=== PATIENT | female | born 1960 | race Caucasian/White ===

== ENCOUNTER 2021-07-21 15:22 | Inpatient (IN) | payer OTHER ==
[~2021-07-21] VITALS: Ht 167.6 cm; Wt 195.0 kg
[2021-07-21 16:49] LABS: INR 1.23 (0.9-1.15); Partial Thromboplastin Time 22.8 sec (23.6-33.0)
[2021-07-21 16:52] LABS: Potassium 4.5 mmol/L (3.5-5.1)
[2021-07-21 16:54] LABS: Lactic Acid w/Reflex 5.5 mmol/L (0.4-2.0)
[2021-07-21 16:58] LABS: Albumin 2.5 g/dL (3.4-5.0); BUN/Creatinine Ratio 42.2; Bilirubin, Total 0.6 mg/dL (0.2-1.0); Calcium 8.5 mg/dL (8.5-10.1); Magnesium 2.3 mg/dL (1.6-2.6); Total Protein 6.7 g/dL (6.4-8.2)
[2021-07-21 18:18] LABS: Hematocrit 22.9 % (36.0-46.0); Hemoglobin 7.3 g/dL (12.2-16.2)
[2021-07-21 18:20] LABS: Mean Corpuscular Hemoglobin 30.6 pg (28.0-32.0); Mean Corpuscular Volume 95.7 fL (80.0-100.0); Red Blood Cells 2.39 10^6/uL (4.0-5.20); Red Cell Distribution Width 13.8 % (11.8-14.3)
[2021-07-21 18:39] LABS: White Blood Cell 34.1 10^3/uL (4.4-10.8)
[2021-07-21 18:41] LABS: Basophils % (manual) 0 (0.0-2.0); Blast Cells 0; Eosinophils % (manual) 0 (0-7); Metamyelocytes % 0; Myelocytes % 0; Promyelocytes % 0; Reactive Lymphocytes 0
[2021-07-21 18:56] LABS: Band Neutrophils % (manual) 10; Lymphocytes % (manual) 5 (10.0-50.0); Monocytes % (manual) 12 (0-12)
[2021-07-21] MEDS ORDERED: cefTRIAXone 1GM/50ML D5W 50 ML IV ONE (19:00)
[2021-07-21] MEDS ORDERED: SODIUM CHLORIDE 0.9% 1,000 ML IV ONE (19:15)
[2021-07-21] MEDS ORDERED: ALBUMIN 5% 250 ML IV ONE ×2 (23:00→23:36)
[2021-07-21] MEDS ORDERED: MORPHINE SULFATE INJECTION 2 MG/ML SYRG IV PRN (23:00)
[2021-07-21] MEDS ORDERED: NITROGLYCERIN 0.4 MG SL TAB SL PRN (23:00)
[2021-07-21] MEDS ORDERED: DEXTROSE (50%) 50ML SYRG IV PRN (23:00)
[2021-07-21] MEDS ORDERED: ONDANSETRON HCL 4 MG/2 ML VIAL IV PRN (23:00)
[2021-07-21] MEDS ORDERED: levoFLOXacin 250MG 50 ML IV ONE ×2 (23:30→23:38)
[2021-07-21] MEDS ORDERED: AZITHROMYCIN 500MG/ 250ML 250 ML IV ONE ×2 (23:30→23:38)
[2021-07-21] MEDS ORDERED: PANTOPRAZOLE 40 MG/10 ML VIAL INJ IV ONE ×2 (23:35→23:55)
[2021-07-22] MEDS: SODIUM CHLORIDE 0.9% 1,000 ML IV SCH ×3 (00:40→09:04)
[2021-07-22] MEDS: PANTOPRAZOLE 40mg/50ML NS AE 50 ML IV SCH ×3 (00:40→09:04)
[2021-07-22] MEDS: ACCU-CHEK COMFORT CURVE STRIP VI SCH ×4 (06:00→18:10)
[2021-07-22] MEDS: InsuLIN REG 1unit/0.01ml Soln (100units/ml) SC SCH ×4 (06:00→18:11)
[2021-07-22 06:40] LABS: Hematocrit 19.6 % (36.0-46.0); Mean Corpuscular Hemoglobin 31.5 pg (28.0-32.0); Mean Corpuscular Hgb Conc. 32.1 g/dL (32.0-36.0); Red Cell Distribution Width 14.1 % (11.8-14.3)
[2021-07-22 06:45] LABS: Hemoglobin 6.3 g/dL (12.2-16.2); White Blood Cell 30.8 10^3/uL (4.4-10.8)
[2021-07-22 06:46] LABS: Basophils % (manual) 0 (0.0-2.0); Blast Cells 0; Myelocytes % 0; Promyelocytes % 0; Reactive Lymphocytes 0
[2021-07-22 07:00] LABS: Potassium 4.1 mmol/L (3.5-5.1)
[2021-07-22 07:06] LABS: Albumin 2.6 g/dL (3.4-5.0); BUN/Creatinine Ratio 48.4; Bilirubin, Total 0.7 mg/dL (0.2-1.0); Calcium 8.4 mg/dL (8.5-10.1); Total Protein 6.3 g/dL (6.4-8.2)
[2021-07-22 08:00] VITALS: BP 101/37
[2021-07-22 08:22] VITALS: BP 113/52
[2021-07-22 09:00] VITALS: BP 114/37
[2021-07-22 10:00] VITALS: BP 96/30
[2021-07-22 11:00] VITALS: BP 117/58
[2021-07-22 13:58] LABS: Band Neutrophils % (manual) 3; Eosinophils % (manual) 1 (0-7); Lymphocytes % (manual) 9 (10.0-50.0); Metamyelocytes % 1; Monocytes % (manual) 4 (0-12)
[2021-07-22] MEDS ORDERED: AZITHROMYCIN 500MG/ 250ML 250 ML IV SCH (22:00)
[2021-07-22] MEDS ORDERED: levoFLOXacin 250MG 50 ML IV SCH (22:00)
[2021-07-22] MEDS: PANTOPRAZOLE 40 MG/10 ML VIAL INJ IV SCH (23:55)
[2021-07-22] MEDS: levoFLOXacin 500MG 100 ML IV SCH (23:55)
[2021-07-23] VITALS (7 sets, daily range): BP systolic 115–155; BP diastolic 52–79
[2021-07-23] MEDS: ACCU-CHEK COMFORT CURVE STRIP VI SCH ×4 (00:52→18:08)
[2021-07-23] MEDS: InsuLIN REG 1unit/0.01ml Soln (100units/ml) SC SCH ×4 (00:54→18:11)
[2021-07-23] MEDS ORDERED: ALBU108A5 IN (05:32)
[2021-07-23] MEDS ORDERED: ATEN-60 PO (05:32)
[2021-07-23] MEDS ORDERED: DIPH25CA29 PO (05:32)
[2021-07-23] MEDS ORDERED: LEVO175T2 PO (05:32)
[2021-07-23 08:07] LABS: Hematocrit 17.8 % (36.0-46.0); Mean Corpuscular Hemoglobin 31.7 pg (28.0-32.0)
[2021-07-23 08:12] LABS: Mean Corpuscular Hgb Conc. 32.4 g/dL (32.0-36.0); Red Blood Cells 1.81 10^6/uL (4.0-5.20); Red Cell Distribution Width 14.1 % (11.8-14.3)
[2021-07-23 08:24] LABS: BUN/Creatinine Ratio 42.9; Calcium 8.5 mg/dL (8.5-10.1); Magnesium 2.6 mg/dL (1.6-2.6); Potassium 3.8 mmol/L (3.5-5.1)
[2021-07-23 08:29] LABS: INR 1.23 (0.9-1.15)
[2021-07-23] MEDS ORDERED: fentaNYL CITRATE 100 MCG/2 ML VL ONE (08:42)
[2021-07-23] MEDS ORDERED: LIDOCAINE VISCOUS 2% 15ML UD ONE (08:42)
[2021-07-23] MEDS ORDERED: MIDAZOLAM HCL 5 MG/ML-1ML VIAL ONE (08:42)
[2021-07-23] MEDS ORDERED: SODIUM CHLORIDE LOCK 10 ML ONE (08:42)
[2021-07-23] MEDS ORDERED: diphenhdrAMINE HCL 50 MG/1 ML VL ONE (08:42)
[2021-07-23] MEDS ORDERED: cefTRIAXone 1GM/50ML D5W 50 ML IV SCH (09:00)
[2021-07-23 09:02] LABS: White Blood Cell 32.2 10^3/uL (4.4-10.8)
[2021-07-23 09:03] LABS: Basophils % (manual) 0 (0.0-2.0); Blast Cells 0; Hemoglobin 5.8 g/dL (12.2-16.2); Metamyelocytes % 0; Myelocytes % 0; Promyelocytes % 0; Reactive Lymphocytes 0
[2021-07-23] MEDS: PANTOPRAZOLE 40 MG/10 ML VIAL INJ IV SCH ×2 (10:44→22:22)
[2021-07-23] MEDS: DexAMETHasone SOD PHOS 10MG/1ML VIAL INJ IV SCH (10:44)
[2021-07-23] MEDS ORDERED: VANCOMYCIN PER PHARMACY 0 MG IV SCH (13:00)
[2021-07-23] MEDS ORDERED: VANCOMYCIN 1GM/250ML 250 ML IV ONE (13:30)
[2021-07-23 14:30] LABS: Band Neutrophils % (manual) 11; Eosinophils % (manual) 1 (0-7); Lymphocytes % (manual) 9 (10.0-50.0); Monocytes % (manual) 11 (0-12)
[2021-07-23] MEDS ORDERED: FUROSEMIDE 40 MG/4 ML VIAL IV ONE (14:45)
[2021-07-23] MEDS: levoFLOXacin 500MG 100 ML IV SCH (22:22)
[2021-07-23] MEDS ORDERED: VANCOMYCIN 1GM/250ML 250 ML IV SCH (23:00)
[2021-07-24] MEDS: VANCOMYCIN 1GM/250ML 250 ML IV SCH ×2 (02:45→15:15)
[2021-07-24] MEDS ORDERED: VANCOMYCIN 1GM/250ML 250 ML IV SCH (03:00)
[2021-07-24 05:00] VITALS: BP 138/57
[2021-07-24] MEDS: ACCU-CHEK COMFORT CURVE STRIP VI SCH ×4 (05:56→18:06)
[2021-07-24] MEDS: InsuLIN REG 1unit/0.01ml Soln (100units/ml) SC SCH ×4 (05:57→18:12)
[2021-07-24 08:19] LABS: Hemoglobin 7.4 g/dL (12.2-16.2)
[2021-07-24 08:21] LABS: Hematocrit 22.4 % (36.0-46.0); Mean Corpuscular Hemoglobin 31.6 pg (28.0-32.0); Mean Corpuscular Hgb Conc. 32.9 g/dL (32.0-36.0); Mean Corpuscular Volume 95.8 fL (80.0-100.0); Red Blood Cells 2.34 10^6/uL (4.0-5.20); Red Cell Distribution Width 14.6 % (11.8-14.3)
[2021-07-24 08:34] VITALS: BP 110/47
[2021-07-24 08:36] LABS: White Blood Cell 37.7 10^3/uL (4.4-10.8)
[2021-07-24 08:37] LABS: Basophils % (manual) 0 (0.0-2.0); Blast Cells 0; Eosinophils % (manual) 0 (0-7); Myelocytes % 0; Promyelocytes % 0; Reactive Lymphocytes 0
[2021-07-24 08:56] LABS: Potassium 3.7 mmol/L (3.5-5.1)
[2021-07-24] MEDS ORDERED: SIMETHICONE 40 MG/0.6 ML ORAL DROP ONE (09:19)
[2021-07-24 09:30] LABS: BUN/Creatinine Ratio 36.8; Calcium 8.5 mg/dL (8.5-10.1)
[2021-07-24] MEDS ORDERED: PROPOFOL 10 MG/ML 20 ML IV ONE (09:42)
[2021-07-24] MEDS ORDERED: ONDANSETRON HCL 4 MG/2 ML VIAL ONE (09:42)
[2021-07-24] MEDS ORDERED: LIDOCAINE 2% (LOCAL ANESTH.) PF 5ml SDV ONE (09:42)
[2021-07-24] MEDS ORDERED: KETAMINE HCL 10 ML ONE (09:42)
[2021-07-24] MEDS ORDERED: MIDAZOLAM HCL 2MG/2ML 2ml VIAL (1mg/ml) ONE (09:42)
[2021-07-24] MEDS ORDERED: GLYCOPYRROLATE 0.2 MG/ML 1ML VIAL ONE (09:42)
[2021-07-24] MEDS: PANTOPRAZOLE 40 MG/10 ML VIAL INJ IV SCH ×2 (10:00→22:27)
[2021-07-24] MEDS ORDERED: OCTREOTIDE ACETATE 100 MCG in SODIUM CHL 0.9% 50 ML IV ONE (10:15)
[2021-07-24] MEDS: DexAMETHasone SOD PHOS 10MG/1ML VIAL INJ IV SCH (11:01)
[2021-07-24 13:00] VITALS: BP 139/64
[2021-07-24 13:31] LABS: Band Neutrophils % (manual) 9; Lymphocytes % (manual) 9 (10.0-50.0); Metamyelocytes % 1; Monocytes % (manual) 7 (0-12)
[2021-07-24 17:00] VITALS: BP 141/60
[2021-07-24] MEDS: OCTREOTIDE ACETATE 500 MCG in SODIUM CHL 0.9% 99 ML IV SCH (18:06)
[2021-07-24 22:00] VITALS: BP 128/56
[2021-07-24] MEDS: levoFLOXacin 500MG 100 ML IV SCH (22:26)
[2021-07-25] MEDS: InsuLIN REG 1unit/0.01ml Soln (100units/ml) SC SCH ×4 (01:29→17:48)
[2021-07-25] MEDS: ACCU-CHEK COMFORT CURVE STRIP VI SCH ×4 (01:34→17:47)
[2021-07-25] MEDS: VANCOMYCIN 1GM/250ML 250 ML IV SCH ×2 (04:15→13:45)
[2021-07-25 05:00] VITALS: BP 148/63
[2021-07-25] MEDS: OCTREOTIDE ACETATE 500 MCG in SODIUM CHL 0.9% 99 ML IV SCH ×3 (06:15→16:15)
[2021-07-25 09:00] VITALS: BP 125/47
[2021-07-25] MEDS: PANTOPRAZOLE 40 MG/10 ML VIAL INJ IV SCH ×2 (10:17→22:16)
[2021-07-25] MEDS: DexAMETHasone SOD PHOS 10MG/1ML VIAL INJ IV SCH (10:17)
[2021-07-25 12:55] VITALS: BP 160/63
[2021-07-25 14:49] LABS: Hemoglobin 7.9 g/dL (12.2-16.2)
[2021-07-25 14:55] LABS: Hematocrit 23.6 % (36.0-46.0); Mean Corpuscular Hemoglobin 32.1 pg (28.0-32.0); Mean Corpuscular Hgb Conc. 33.6 g/dL (32.0-36.0); Mean Corpuscular Volume 95.6 fL (80.0-100.0); Red Blood Cells 2.47 10^6/uL (4.0-5.20); Red Cell Distribution Width 14.7 % (11.8-14.3); White Blood Cell 23.5 10^3/uL (4.4-10.8)
[2021-07-25 14:57] LABS: Basophils % (manual) 0 (0.0-2.0); Blast Cells 0; Eosinophils % (manual) 0 (0-7); Myelocytes % 0; Promyelocytes % 0; Reactive Lymphocytes 0
[2021-07-25 15:24] LABS: Band Neutrophils % (manual) 10; Lymphocytes % (manual) 6 (10.0-50.0); Metamyelocytes % 1; Monocytes % (manual) 3 (0-12)
[2021-07-25 17:00] VITALS: BP 154/63
[2021-07-25 22:00] VITALS: BP 106/45
[2021-07-25] MEDS: levoFLOXacin 500MG 100 ML IV SCH (22:16)
[2021-07-26] MEDS: ACCU-CHEK COMFORT CURVE STRIP VI SCH ×4 (00:18→18:00)
[2021-07-26] MEDS: InsuLIN REG 1unit/0.01ml Soln (100units/ml) SC SCH ×4 (00:26→19:09)
[2021-07-26] MEDS: VANCOMYCIN 1GM/250ML 250 ML IV SCH ×2 (00:54→09:06)
[2021-07-26] MEDS: OCTREOTIDE ACETATE 500 MCG in SODIUM CHL 0.9% 99 ML IV SCH ×3 (02:15→22:15)
[2021-07-26 05:00] VITALS: BP 121/47
[2021-07-26] MEDS ORDERED: HYDROcodone-ACET 5/325MG TAB PO PRN (07:45)
[2021-07-26 08:00] VITALS: BP 155/79
[2021-07-26 08:30] VITALS: BP 120/66
[2021-07-26] MEDS: DexAMETHasone SOD PHOS 10MG/1ML VIAL INJ IV SCH (09:06)
[2021-07-26] MEDS: PANTOPRAZOLE 40 MG/10 ML VIAL INJ IV SCH (09:35)
[2021-07-26 10:22] LABS: Basophils # (auto) 0.1 10 ^3/uL (0-0.2); Eosinophils # (auto) 0 10 ^3/uL (0-0.8); Lymphocytes # (auto) 2.1 10 ^3/uL (0.4-5.4); Monocytes # (auto) 0.9 10 ^3/uL (0-1.3); Nucleated Red Blood Cells % 2.4 %; Red Blood Cells 2.31 10^6/uL (4.0-5.20)
[2021-07-26 10:24] LABS: Basophils % (auto) 0.7 % (0.0-2.0); Eosinophils % (auto) 0.1 % (0.0-7.0); Hematocrit 21.9 % (36.0-46.0); Hemoglobin 7.3 g/dL (12.2-16.2); Lymphocytes % (auto) 11.6 % (10.0-50.0); Mean Corpuscular Hemoglobin 31.6 pg (28.0-32.0); Mean Corpuscular Hgb Conc. 33.2 g/dL (32.0-36.0); Mean Corpuscular Volume 95.1 fL (80.0-100.0); Monocytes % (auto) 5.1 % (0.0-12.0); Neutrophils # (auto) 15.2 10 ^3/uL (1.6-8.6); Neutrophils % (auto) 82.5 % (37.0-80.0); Red Cell Distribution Width 14.9 % (11.8-14.3); White Blood Cell 18.4 10^3/uL (4.4-10.8)
[2021-07-26 12:01] LABS: Albumin 2.9 g/dL (3.4-5.0); Calcium 8.1 mg/dL (8.5-10.1)
[2021-07-26 12:05] LABS: BUN/Creatinine Ratio 22.1; Bilirubin, Total 1.1 mg/dL (0.2-1.0); Total Protein 6.3 g/dL (6.4-8.2)
[2021-07-26 12:35] VITALS: BP 134/65
[2021-07-26 17:24] VITALS: BP 120/56
[2021-07-26 20:00] VITALS: BP 155/79
[2021-07-26 23:11] LABS: INR 1.13 (0.9-1.15); Partial Thromboplastin Time 21.9 sec (23.6-33.0)
[2021-07-27] MEDS: VANCOMYCIN 1GM/250ML 250 ML IV SCH ×2 (04:07→07:17)
[2021-07-27] MEDS: PANTOPRAZOLE 40 MG/10 ML VIAL INJ IV SCH ×3 (04:08→21:35)
[2021-07-27] MEDS: levoFLOXacin 500MG 100 ML IV SCH ×2 (04:08→21:35)
[2021-07-27] MEDS: InsuLIN REG 1unit/0.01ml Soln (100units/ml) SC SCH ×4 (05:49→18:12)
[2021-07-27] MEDS: ACCU-CHEK COMFORT CURVE STRIP VI SCH ×4 (05:50→17:41)
[2021-07-27 07:00] LABS: Red Blood Cells 2.36 10^6/uL (4.0-5.20)
[2021-07-27 07:02] LABS: Hematocrit 22.7 % (36.0-46.0); Hemoglobin 7.5 g/dL (12.2-16.2); Mean Corpuscular Hemoglobin 31.9 pg (28.0-32.0); Mean Corpuscular Hgb Conc. 33.2 g/dL (32.0-36.0); Mean Corpuscular Volume 96.1 fL (80.0-100.0); Red Cell Distribution Width 15.5 % (11.8-14.3); White Blood Cell 15.2 10^3/uL (4.4-10.8)
[2021-07-27 07:05] LABS: Basophils % (manual) 0 (0.0-2.0); Blast Cells 0; Eosinophils % (manual) 0 (0-7); Promyelocytes % 0; Reactive Lymphocytes 0
[2021-07-27 07:35] LABS: Potassium 4.1 mmol/L (3.5-5.1)
[2021-07-27 07:44] LABS: Band Neutrophils % (manual) 11; Lymphocytes % (manual) 15 (10.0-50.0); Metamyelocytes % 1; Monocytes % (manual) 2 (0-12); Myelocytes % 1
[2021-07-27 08:04] LABS: Albumin 2.9 g/dL (3.4-5.0); BUN/Creatinine Ratio 21.1; Bilirubin, Total 1.1 mg/dL (0.2-1.0)
[2021-07-27] MEDS: OCTREOTIDE ACETATE 500 MCG in SODIUM CHL 0.9% 99 ML IV SCH (08:15)
[2021-07-27 09:00] VITALS: BP 136/60
[2021-07-27] MEDS: DexAMETHasone SOD PHOS 10MG/1ML VIAL INJ IV SCH (11:28)
[2021-07-27 13:00] VITALS: BP 124/80
[2021-07-27 17:00] VITALS: BP 144/65
[2021-07-27 22:00] VITALS: BP 125/60
[2021-07-28] MEDS: InsuLIN REG 1unit/0.01ml Soln (100units/ml) SC SCH ×4 (00:55→17:40)
[2021-07-28 05:00] VITALS: BP 127/39
[2021-07-28] MEDS: ACCU-CHEK COMFORT CURVE STRIP VI SCH ×5 (05:20→23:51)
[2021-07-28 06:09] LABS: Hemoglobin 8.2 g/dL (12.2-16.2)
[2021-07-28 06:11] LABS: Hematocrit 25.4 % (36.0-46.0); Mean Corpuscular Hemoglobin 30.7 pg (28.0-32.0); Mean Corpuscular Hgb Conc. 32.4 g/dL (32.0-36.0); Mean Corpuscular Volume 94.9 fL (80.0-100.0); Red Blood Cells 2.68 10^6/uL (4.0-5.20); Red Cell Distribution Width 16.3 % (11.8-14.3); White Blood Cell 11.7 10^3/uL (4.4-10.8)
[2021-07-28 06:37] LABS: Basophils % (manual) 0 (0.0-2.0); Blast Cells 0; Eosinophils % (manual) 0 (0-7); Myelocytes % 0; Promyelocytes % 0; Reactive Lymphocytes 0
[2021-07-28 06:40] LABS: Potassium 3.8 mmol/L (3.5-5.1)
[2021-07-28 06:47] LABS: Albumin 2.8 g/dL (3.4-5.0); BUN/Creatinine Ratio 23.3; Bilirubin, Total 1.6 mg/dL (0.2-1.0); Calcium 8.4 mg/dL (8.5-10.1); Total Protein 6.3 g/dL (6.4-8.2)
[2021-07-28 07:57] LABS: Band Neutrophils % (manual) 9; Lymphocytes % (manual) 12 (10.0-50.0); Metamyelocytes % 1; Monocytes % (manual) 6 (0-12)
[2021-07-28 08:57] VITALS: BP 131/63
[2021-07-28] MEDS: PANTOPRAZOLE 40 MG/10 ML VIAL INJ IV SCH ×2 (10:06→21:50)
[2021-07-28] MEDS: DexAMETHasone SOD PHOS 10MG/1ML VIAL INJ IV SCH (10:06)
[2021-07-28 13:00] VITALS: BP 131/68
[2021-07-28 17:00] VITALS: BP 131/65
[2021-07-28] MEDS: levoFLOXacin 500MG 100 ML IV SCH (21:50)
[2021-07-28 22:00] VITALS: BP 142/64
[2021-07-29 05:00] VITALS: BP 130/42
[2021-07-29] MEDS: InsuLIN REG 1unit/0.01ml Soln (100units/ml) SC SCH ×3 (05:18→12:36)
[2021-07-29] MEDS: ACCU-CHEK COMFORT CURVE STRIP VI SCH ×2 (05:18→12:36)
[2021-07-29 07:12] LABS: Basophils # (auto) 0.1 10 ^3/uL (0-0.2); Eosinophils # (auto) 0 10 ^3/uL (0-0.8); Hemoglobin 8.3 g/dL (12.2-16.2); Lymphocytes # (auto) 1.5 10 ^3/uL (0.4-5.4); Red Blood Cells 2.69 10^6/uL (4.0-5.20)
[2021-07-29 07:15] LABS: Eosinophils % (auto) 0.3 % (0.0-7.0); Hematocrit 25.4 % (36.0-46.0); Lymphocytes % (auto) 11.1 % (10.0-50.0); Mean Corpuscular Hemoglobin 30.7 pg (28.0-32.0); Mean Corpuscular Hgb Conc. 32.5 g/dL (32.0-36.0); Mean Corpuscular Volume 94.4 fL (80.0-100.0); Monocytes % (auto) 7.3 % (0.0-12.0); Neutrophils # (auto) 10.7 10 ^3/uL (1.6-8.6); Neutrophils % (auto) 80.3 % (37.0-80.0); Nucleated Red Blood Cells % 0.6 %; Red Cell Distribution Width 15.9 % (11.8-14.3); White Blood Cell 13.4 10^3/uL (4.4-10.8)
[2021-07-29 07:30] VITALS: BP 147/48
[2021-07-29 07:39] LABS: Potassium 3.6 mmol/L (3.5-5.1)
[2021-07-29 07:58] LABS: Albumin 2.8 g/dL (3.4-5.0); BUN/Creatinine Ratio 18.8; Calcium 8.4 mg/dL (8.5-10.1)
[2021-07-29 08:01] LABS: Bilirubin, Total 1.7 mg/dL (0.2-1.0); Total Protein 6.1 g/dL (6.4-8.2)
[2021-07-29] MEDS: DexAMETHasone SOD PHOS 10MG/1ML VIAL INJ IV SCH (08:56)
[2021-07-29] MEDS: PANTOPRAZOLE 40 MG/10 ML VIAL INJ IV SCH (08:56)
[2021-07-29 12:45] VITALS: BP 162/74
[2021-07-29] MEDS ORDERED: ASCO500T11 PO (13:09)
[2021-07-29] MEDS ORDERED: ZINC220C10 PO (13:09)
[2021-07-29] MEDS ORDERED: DEXA6TAB6 PO (13:09)
[2021-07-29] MEDS ORDERED: PANT40TA2 PO (13:09)
[2021-07-29] MEDS ORDERED: CHOL20007 OR (13:09)
[2021-07-29 16:06] VITALS: BP 155/79
[2021-07-29 16:15] VITALS: BP 91/59
== END 2021-07-29 18:00 | disposition home or self-care (01) | DRG 177 ==
LOC: ER 15:22 → EDBD 15:22 → TELE 22:52 → TELE-WESTW 07-22 22:09
PROVIDERS: ADMIT Nurse Practitioner; ATTEND Internal Medicine Geriatric Medicine
PROC: 30233N1 Transfusion of Nonautologous Red Blood Cells into Peripheral Vein, Percutaneous Approach (ICD-10-PCS; 2021-07-22)
PROC: 05HB33Z Insertion of Infusion Device into Right Basilic Vein, Percutaneous Approach (ICD-10-PCS; 2021-07-22)
PROC: B54MZZA Ultrasonography of Right Upper Extremity Veins, Guidance (ICD-10-PCS; 2021-07-22)
PROC: 0DJ08ZZ Inspection of Upper Intestinal Tract, Via Natural or Artificial Opening Endoscopic (ICD-10-PCS; principal; 2021-07-24 09:40)
PROC: 05HC33Z Insertion of Infusion Device into Left Basilic Vein, Percutaneous Approach (ICD-10-PCS; 2021-07-26)
PROC: B54NZZA Ultrasonography of Left Upper Extremity Veins, Guidance (ICD-10-PCS; 2021-07-26)
DX: U07.1 COVID-19 (principal); J12.82 Pneumonia due to coronavirus disease 2019; K92.0 Hematemesis; D62 Acute posthemorrhagic anemia; Z68.44 Body mass index [BMI] 60.0-69.9, adult; E44.1 Mild protein-calorie malnutrition; E03.9 Hypothyroidism, unspecified; E11.9 Type 2 diabetes mellitus without complications; I10 Essential (primary) hypertension; I86.4 Gastric varices; E66.01 Morbid (severe) obesity due to excess calories; K76.0 Fatty (change of) liver, not elsewhere classified
CPT/HCPCS: 36415; 36430; 71045; 76705; 80048; 80053; 80202; 82565; 82962; 83605; 83735; 83880; 84484; 85007; 85014; 85018; 85025; 85027; 85379; 85610; 85730; 86850; 86900; 86901; 86920; 87040; 87077; 87186; 87426; 93005; 93970; 96365; 96367; 97110; 97116; 97163; 97530; C9113; G0378; J0696; J1100; J1815; J1956; J2001; J2250; J2405; J2704

== ENCOUNTER 2022-09-10 11:59 | Inpatient (IN) | payer OTHER ==
[2022-09-10] VITALS (13 sets, daily range): BP systolic 30–90; BP diastolic 15–37
[~2022-09-10] VITALS: Ht 165.1 cm; Wt 187.1 kg
[~2022-09-10 11:59] MED LIST: ALBU108A5 IN; ASCO500T11 PO; ATEN-60 PO; CHOL20007 OR; DEXA6TAB6 PO; DIPH25CA29 PO; LEVO175T2 PO; PANT40TA2 PO; ZINC220C10 PO
[2022-09-10] MEDS ORDERED: SODIUM CHLORIDE 0.9% 1,000 ML IV ONE ×2 (13:45→19:30)
[2022-09-10 14:45] LABS: Albumin 2.4 g/dL (3.4-5.0); Anion Gap 17 (5-15); Blood Alcohol < 3.0 mg/dL (0-5); Blood Urea Nitrogen 58 mg/dL (7-18); Calcium 8.4 mg/dL (8.5-10.1); Carbon Dioxide 15 mmol/L (21-32); Chloride 109 mmol/L (98-107); Glucose 191 mg/dL (74-106); Lactic Acid w/Reflex 11.4 mmol/L (0.4-2.0); Potassium 4.3 mmol/L (3.5-5.1); Sodium 141 mmol/L (136-145)
[2022-09-10 14:47] LABS: Alanine Aminotransferase 20 U/L (13-56); Aspartate Aminotransferase 47 U/L (15-37); BUN/Creatinine Ratio 40.6; GFR African American 48 mL/min; GFR Non-African American 40 mL/min
[2022-09-10 14:49] LABS: Alkaline Phosphatase 59 U/L (45-117); Bilirubin, Total 1.1 mg/dL (0.2-1.0); Creatine Kinase IFCC 284 U/L (26-192); Total Protein 6.3 g/dL (6.4-8.2)
[2022-09-10 14:53] LABS: INR 1.29 (0.9-1.15); Partial Thromboplastin Time < 20.0 sec (24.6-33.4)
[2022-09-10] MEDS ORDERED: cefTRIAXone 1GM/50ML D5W 50 ML IV ONE ×2 (15:00→19:15)
[2022-09-10] MEDS ORDERED: AZITHROMYCIN 500MG/ 250ML 250 ML IV ONE (15:00)
[2022-09-10] MEDS ORDERED: SUCCINYLCHOLINE CHLORIDE 20 MG/ML 10ML VIAL IV ONE (15:15)
[2022-09-10] MEDS ORDERED: ETOMIDATE (2MG/ML) 20ML VIAL IV ONE (15:15)
[2022-09-10] MEDS: MIDAZOLAM DRIP 50 mg/50mL 50 ML IV SCH ×3 (15:30→21:04)
[2022-09-10 16:40] LABS: Hematocrit 12.9 % (36.0-46.0); Mean Corpuscular Hgb Conc. 24.8 g/dL (32.0-36.0); Mean Corpuscular Volume 88.8 fL (80.0-100.0); Red Blood Cells 1.45 10^6/uL (4.0-5.20)
[2022-09-10] MEDS: NOREPINEPHRINE 8 MG/250ML KIT 250 ML IV SCH (16:53)
[2022-09-10] MEDS: PROPOFOL 100 ML IV SCH (16:54)
[2022-09-10 17:01] LABS: Hemoglobin 3.2 g/dL (12.2-16.2)
[2022-09-10 17:03] LABS: Basophils % (manual) 0 (0.0-2.0); Blast Cells 0; Eosinophils % (manual) 0 (0-7); Metamyelocytes % 0; Monocytes % (manual) 0 (0-12); Myelocytes % 0; Promyelocytes % 0; Reactive Lymphocytes 0
[2022-09-10 17:23] LABS: Band Neutrophils % (manual) 3; Lymphocytes % (manual) 17 (10.0-50.0)
[2022-09-10 18:36] LABS: Urine Bacteria FEW /hpf (None Seen); Urine Blood Negative /uL (Negative); Urine Specific Gravity 1.018 (1.001-1.035); Urine WBC 1 /hpf (0 - 5)
[2022-09-10 18:44] LABS: Alcohol, Urine < 3.0 mg/dL (0-10); Amphetamine Screen, Urine NEGATIVE (NEGATIVE); Barbiturate Scree,Urine NEGATIVE (NEGATIVE); Benzodiazephine Screen, Urine NEGATIVE (NEGATIVE); Cannabinoid Screen, Urine NEGATIVE (NEGATIVE); Cocaine Screen, Urine NEGATIVE (NEGATIVE); Opiate Scree,Urine NEGATIVE (NEGATIVE); Phencyclidine Screen, Urine NEGATIVE (NEGATIVE)
[2022-09-10] MEDS ORDERED: NITROGLYCERIN 0.4 MG SL TAB SL PRN (19:00)
[2022-09-10] MEDS ORDERED: MORPHINE SULFATE INJ 2 MG/ml SYRG IV PRN (19:00)
[2022-09-10] MEDS ORDERED: PANTOPRAZOLE 80 MG in SODIUM CHL 0.9% 100 ML IV ONE ×2 (19:00→19:15)
[2022-09-10] MEDS ORDERED: FERROUS SULFATE 300 MG/5 ML ORAL LIQ GT ONE (19:00)
[2022-09-10] MEDS ORDERED: DEXTROSE (50%) 50ML SYRG IV PRN (19:30)
[2022-09-10] MEDS ORDERED: OCTREOTIDE ACETATE 100 MCG in SODIUM CHL 0.9% 50 ML IV ONE (19:45)
[2022-09-10] MEDS: fentaNYL Drip 2500mCg/250mlNS 250 ML IV SCH (19:59)
[2022-09-10 20:07] LABS: Hematocrit 11.7 % (36.0-46.0); Mean Corpuscular Hemoglobin 22.3 pg (28.0-32.0); Mean Corpuscular Volume 89.4 fL (80.0-100.0); Red Blood Cells 1.3 10^6/uL (4.0-5.20)
[2022-09-10 20:09] LABS: Red Cell Distribution Width 22.8 % (11.8-14.3)
[2022-09-10 20:14] LABS: % Iron Saturation 2.8 % (15-50)
[2022-09-10 20:16] LABS: White Blood Cell 50.8 10^3/uL (4.4-10.8)
[2022-09-10 20:17] LABS: Hemoglobin 2.9 g/dL (12.2-16.2)
[2022-09-10 20:31] LABS: Lactic Acid w/Reflex 15.8 mmol/L (0.4-2.0)
[2022-09-10] MEDS ORDERED: PANTOPRAZOLE 40 MG/10 ML VIAL INJ IV ONE (20:32)
[2022-09-10] MEDS: PANTOPRAZOLE 40mg/50ML NS AE 50 ML IV SCH (21:04)
[2022-09-10] MEDS ORDERED: OCTREOTIDE ACETATE 100 MCG/ML VL ONE (21:21)
[2022-09-10] MEDS: PHENYLEPHRINE IV 250 ML IV SCH (22:43)
[2022-09-10] MEDS ORDERED: DEXTROSE 10% 250 ML IV ONE (23:55)
[2022-09-11] VITALS (80 sets, daily range): BP systolic 0–148; BP diastolic 0–121
[2022-09-11] MEDS ORDERED: METF-370 PO (00:15)
[2022-09-11] MEDS ORDERED: OCTREOTIDE ACETATE 100 MCG/ML VL ONE ×2 (00:19→00:23)
[2022-09-11] MEDS: OCTREOTIDE ACETATE 500 MCG in SODIUM CHL 0.9% 99 ML IV SCH ×3 (00:36→10:36)
[2022-09-11] MEDS: MIDAZOLAM DRIP 50 mg/50mL 50 ML IV SCH ×2 (00:37→05:04)
[2022-09-11] MEDS: PANTOPRAZOLE 40mg/50ML NS AE 50 ML IV SCH ×4 (00:38→15:45)
[2022-09-11] MEDS: PHENYLEPHRINE IV 250 ML IV SCH ×3 (00:46→05:05)
[2022-09-11] MEDS ORDERED: VASOPRESSIN 20 UNIT/ML ONE (01:17)
[2022-09-11] MEDS: VASOPRESSIN 20 UNITS in SODIUM CHL 0.9% 99 ML IV SCH ×2 (01:36→10:35)
[2022-09-11] MEDS: NOREPINEPHRINE 8 MG/250ML KIT 250 ML IV SCH (01:59)
[2022-09-11] MEDS ORDERED: DEXTROSE 10% 250 ML IV ONE ×3 (05:39→07:09)
[2022-09-11] MEDS: InsuLIN REG 1unit/0.01ml Soln (100units/ml) SC SCH ×2 (05:49)
[2022-09-11] MEDS: ACCU-CHEK COMFORT CURVE STRIP VI SCH ×14 (05:51→19:25)
[2022-09-11 06:30] LABS: Albumin 1.7 g/dL (3.4-5.0); Calcium 7.3 mg/dL (8.5-10.1); Magnesium 3.7 mg/dL (1.6-2.6)
[2022-09-11 06:38] LABS: BUN/Creatinine Ratio 24.4; Bilirubin, Total 1.1 mg/dL (0.2-1.0); Total Protein 4.3 g/dL (6.4-8.2)
[2022-09-11] MEDS ORDERED: EPINEPHrine HCL 250 ML IV ONE ×2 (07:00→13:11)
[2022-09-11] MEDS ORDERED: SODIUM BICARBONATE 8.4 % INJ 50ML VIAL IV ONE ×2 (07:04→13:15)
[2022-09-11] MEDS ORDERED: NOREPINEPHRINE BITARTRATE 32 MG in SODIUM CHL 0.9% 218 ML IV SCH (07:15)
[2022-09-11] MEDS ORDERED: DEXTROSE 10% 1,000 ML IV ONE (07:15)
[2022-09-11] MEDS ORDERED: SODIUM BICARBONATE 8.4% INJ 50ML SYRINGE ONE ×2 (07:26→13:10)
[2022-09-11 07:36] LABS: Phosphorus 9.8 mg/dL (2.5-4.90); Potassium 6.9 mmol/L (3.5-5.1)
[2022-09-11] MEDS ORDERED: InsuLIN REG 1unit/0.01ml Soln (100units/ml) IV ONE ×3 (07:45→16:30)
[2022-09-11] MEDS ORDERED: DEXTROSE (50%) 50ML SYRG IV ONE ×3 (07:45→16:30)
[2022-09-11] MEDS ORDERED: SODIUM CHLORIDE 0.9% 1,000 ML IV SCH (07:45)
[2022-09-11] MEDS ORDERED: CALCIUM GLUC 1,000mg/50ml-NS 50 ML IV ONE ×5 (07:45→16:30)
[2022-09-11] MEDS ORDERED: InsuLIN REG 1unit/0.01ml Soln (100units/ml) SC SCH (08:00)
[2022-09-11 08:06] LABS: Red Blood Cells 1.17 10^6/uL (4.0-5.20)
[2022-09-11 08:12] LABS: Hematocrit 12.1 % (36.0-46.0); Mean Corpuscular Hemoglobin 25.3 pg (28.0-32.0); Mean Corpuscular Hgb Conc. 24.6 g/dL (32.0-36.0)
[2022-09-11 08:15] LABS: Red Cell Distribution Width 20.7 % (11.8-14.3)
[2022-09-11 08:18] LABS: White Blood Cell 49.9 10^3/uL (4.4-10.8)
[2022-09-11 08:20] LABS: Basophils % (manual) 0 (0.0-2.0); Blast Cells 0; Eosinophils % (manual) 0 (0-7); Promyelocytes % 0; Reactive Lymphocytes 0
[2022-09-11 08:25] LABS: INR 2.61 (0.9-1.15)
[2022-09-11] MEDS: PHENYLEPHRINE INJ 80 MG in SODIUM CHL 0.9% 242 ML IV SCH ×2 (08:45→15:25)
[2022-09-11 08:46] LABS: Partial Thromboplastin Time 78.3 sec (24.6-33.4)
[2022-09-11 09:08] LABS: Band Neutrophils % (manual) 24; Lymphocytes % (manual) 35 (10.0-50.0); Metamyelocytes % 3; Monocytes % (manual) 3 (0-12); Myelocytes % 1
[2022-09-11 09:20] LABS: Lactic Acid w/Reflex 25.6 mmol/L (0.4-2.0)
[2022-09-11] MEDS: PROPOFOL 100 ML IV SCH (10:35)
[2022-09-11] MEDS: fentaNYL Drip 2500mCg/250mlNS 250 ML IV SCH (10:36)
[2022-09-11] MEDS ORDERED: VANCOMYCIN PER PHARMACY 0 MG IV SCH ×2 (11:15→17:45)
[2022-09-11] MEDS ORDERED: SODIUM BICARBONATE 50ML VIAL 150 ML in SOD CHL 0.45% 1,000 ML IV SCH (11:15)
[2022-09-11] MEDS ORDERED: VANCOMYCIN 1GM/250ML 250 ML IV ONE (11:15)
[2022-09-11] MEDS ORDERED: cefTRIAXone 1GM/50ML D5W 50 ML IV ONE (11:15)
[2022-09-11] MEDS: DOPamine 1600MCG/ML D5W 250 ML IV SCH ×5 (13:15→20:51)
[2022-09-11] MEDS ORDERED: EPINEPHrine HCL INJECTION 16 MG in D5W 5% 234 ML IV SCH (13:30)
[2022-09-11 14:06] LABS: Basophils # (auto) 0.4 10 ^3/uL (0-0.2); Basophils % (auto) 0.9 % (0.0-2.0); Eosinophils # (auto) 0.3 10 ^3/uL (0-0.8); Eosinophils % (auto) 0.8 % (0.0-7.0); Hematocrit 17.1 % (36.0-46.0); Lymphocytes # (auto) 7.9 10 ^3/uL (0.4-5.4); Lymphocytes % (auto) 19.5 % (10.0-50.0); Mean Corpuscular Hemoglobin 27.4 pg (28.0-32.0); Mean Corpuscular Hgb Conc. 27.4 g/dL (32.0-36.0); Monocytes # (auto) 1.6 10 ^3/uL (0-1.3); Monocytes % (auto) 4.1 % (0.0-12.0); Neutrophils # (auto) 30.2 10 ^3/uL (1.6-8.6); Neutrophils % (auto) 74.7 % (37.0-80.0); Red Blood Cells 1.71 10^6/uL (4.0-5.20); Red Cell Distribution Width 18.6 % (11.8-14.3)
[2022-09-11 14:13] LABS: Calcium 7.3 mg/dL (8.5-10.1)
[2022-09-11 14:14] LABS: Nucleated Red Blood Cells % 6.8 %
[2022-09-11 14:16] LABS: BUN/Creatinine Ratio 19.6; Hemoglobin 4.7 g/dL (12.2-16.2); White Blood Cell 40.4 10^3/uL (4.4-10.8)
[2022-09-11 14:21] LABS: Potassium 6.9 mmol/L (3.5-5.1)
[2022-09-11] MEDS ORDERED: SODIUM BICARBONATE 50ML VIAL 150 ML in D5W 5% 1,000 ML IV SCH (16:15)
[2022-09-11] MEDS ORDERED: ALBUTEROL SULF 2.5 MG/0.5ML(0.5%) NEB SOLN NEB ONE (16:30)
[2022-09-11] MEDS ORDERED: MEROPENEM 1GM IVPB 100 ML IV SCH (17:00)
[2022-09-11] MEDS ORDERED: MICAFUNGIN SODIUM 100 MG in SODIUM CHL 0.9% 100 ML IV SCH (17:00)
[2022-09-11 21:34] LABS: Hematocrit 13.5 % (36.0-46.0); Mean Corpuscular Hemoglobin 27.5 pg (28.0-32.0); Mean Corpuscular Hgb Conc. 25.2 g/dL (32.0-36.0); Mean Corpuscular Volume 109.4 fL (80.0-100.0); Red Blood Cells 1.23 10^6/uL (4.0-5.20); Red Cell Distribution Width 17.4 % (11.8-14.3); White Blood Cell 29.8 10^3/uL (4.4-10.8)
[2022-09-11 21:39] LABS: Hemoglobin 3.4 g/dL (12.2-16.2)
[2022-09-11 21:40] LABS: Basophils % (manual) 0 (0.0-2.0); Blast Cells 0; Eosinophils % (manual) 0 (0-7); Metamyelocytes % 0; Monocytes % (manual) 0 (0-12); Myelocytes % 0; Promyelocytes % 0; Reactive Lymphocytes 0
[2022-09-11] MEDS ORDERED: LINEZOLID 600MG/300ML 300 ML IV SCH (22:00)
[2022-09-11 22:16] LABS: Anion Gap 32 (5-15); BUN/Creatinine Ratio 16.5; Blood Urea Nitrogen 59 mg/dL (7-18); Calcium 7.6 mg/dL (8.5-10.1); Chloride 101 mmol/L (98-107); GFR African American 17 mL/min; GFR Non-African American 14 mL/min; Glucose 275 mg/dL (74-106); Sodium 139 mmol/L (136-145)
[2022-09-11 22:19] LABS: Band Neutrophils % (manual) 4; Lymphocytes % (manual) 70 (10.0-50.0)
[2022-09-11 22:59] LABS: Potassium > 10.0 mmol/L (3.5-5.1)
[2022-09-11 23:00] LABS: Carbon Dioxide 6 mmol/L (21-32)
[2022-09-12] MEDS ORDERED: ATROPINE SULF 1 MG/10ml SYR IM ONE (02:48)
[2022-09-12] MEDS ORDERED: EPINEPHrine HCL 1 MG/10 ML SYRG IV ONE (02:48)
[2022-09-12] MEDS ORDERED: SODIUM BICARBONATE 8.4% INJ 50ML SYRINGE IV ONE (02:48)
[2022-09-12 08:43] LABS: Folate (Folic Acid) > 24.00 ng/mL (5.38-24)
[2022-09-12] MEDS ORDERED: cefTRIAXone 1GM/50ML D5W 50 ML IV SCH (09:00)
== END 2022-09-12 02:49 | DRG 208 ==
LOC: EDBD 11:59 → EDUNIT# 11:59 → ER 12:03 → TELE 19:00 → ICU WEST 22:38
PROVIDERS: ADMIT Hospitalist; ATTEND Hospitalist
PROC: 05HM33Z Insertion of Infusion Device into Right Internal Jugular Vein, Percutaneous Approach (ICD-10-PCS; principal; 2022-09-10)
PROC: 5A1945Z Respiratory Ventilation, 24-96 Consecutive Hours (ICD-10-PCS; 2022-09-10)
PROC: 0BH17EZ Insertion of Endotracheal Airway into Trachea, Via Natural or Artificial Opening (ICD-10-PCS; 2022-09-10)
PROC: 30233N1 Transfusion of Nonautologous Red Blood Cells into Peripheral Vein, Percutaneous Approach (ICD-10-PCS; 2022-09-10)
PROC: 5A12012 Performance of Cardiac Output, Single, Manual (ICD-10-PCS; 2022-09-11)
PROC: 5A2204Z Restoration of Cardiac Rhythm, Single (ICD-10-PCS; 2022-09-11)
PROC: 30233K1 Transfusion of Nonautologous Frozen Plasma into Peripheral Vein, Percutaneous Approach (ICD-10-PCS; 2022-09-11)
PROC: 03HY32Z Insertion of Monitoring Device into Upper Artery, Percutaneous Approach (ICD-10-PCS; 2022-09-11)
PROC: 0D9670Z Drainage of Stomach with Drainage Device, Via Natural or Artificial Opening (ICD-10-PCS; 2022-09-12)
DX: J96.00 Acute respiratory failure, unspecified whether with hypoxia or hypercapnia (principal); K92.2 Gastrointestinal hemorrhage, unspecified; N17.9 Acute kidney failure, unspecified; I50.30 Unspecified diastolic (congestive) heart failure; I13.0 Hypertensive heart and chronic kidney disease with heart failure and stage 1 through stage 4 chronic kidney disease, or unspecified chronic kidney disease; Z68.44 Body mass index [BMI] 60.0-69.9, adult; Z20.822 Contact with and (suspected) exposure to COVID-19; R57.8 Other shock; D64.9 Anemia, unspecified; E03.9 Hypothyroidism, unspecified; E66.01 Morbid (severe) obesity due to excess calories; E87.5 Hyperkalemia; I46.9 Cardiac arrest, cause unspecified; E11.22 Type 2 diabetes mellitus with diabetic chronic kidney disease; N18.9 Chronic kidney disease, unspecified; E86.1 Hypovolemia; Z87.11 Personal history of peptic ulcer disease
CPT/HCPCS: 31500; 36415; 36556; 36600; 71045; 80048; 80053; 80307; 80320; 81001; 82550; 82607; 82728; 82746; 82805; 82962; 83540; 83550; 83605; 83615; 83735; 83880; 84100; 84484; 85007; 85025; 85027; 85045; 85379; 85610; 85730; 86850; 86870; 86900; 86901; 86922; 87040; 87070; 87077; 87081; 87086; 87186; 87205; 87426; 93306; 94002; 94003; 94640; 96365; 96366; 96367; 96368; 99291; C9113; G0378; J0171; J0330; J0696; J2185; J2248; J2250; J2704; J7060